=== PATIENT | male | born 1955 ===

== ENCOUNTER 2025-11-02 07:00 | Inpatient (IN) | payer OTHER ==
[~2025-11-02] VITALS: Ht 175.3 cm; Wt 77.1 kg
[2025-11-02 08:36] LABS: BASO % 0.3 % (0.1-1.2); EOS # 0.24 (0.04-0.54); EOS % 3.5 % (0.7-7.0); LYMPH # 1.23 (1.18-3.74); LYMPH % 18.2 % (19.3-53.1); MEAN PLATELET VOLUME 9.40 fl (9.4-12.4); MONO # 0.66 (0.24-0.82); MONO % 9.7 % (4.7-12.5); NEUT # 4.61 (1.56-6.13); NEUT % 68.2 % (34.0-71.1); RED CELL DISTRIBUTION WIDTH 11.8 % (11.6-14.4)
[2025-11-02] MEDS ORDERED: LIPITOR40 MG PO (08:37)
[2025-11-02] MEDS ORDERED: HYDROCHLOROTH12.5 M2 PO (08:37)
[2025-11-02] MEDS ORDERED: NORVASC10 MG PO (08:37)
[2025-11-02 08:38] VITALS: BP 150/80
[2025-11-02] MEDS ORDERED: PROTONIX40 MG PO (08:38)
[2025-11-02 08:57] LABS: COVID-19 AG NEGATIVE (NEGATIVE)
[2025-11-02 09:00] LABS: URINE APPEARANCE Clear; URINE BILIRRUBIN Negative (NEGATIVE); URINE BLOOD Negative; URINE COLOR Yellow; URINE GLUCOSE Negative (NEGATIVE); URINE KETONE Negative (NEGATIVE); URINE LEUKOCYTE Negative; URINE NITRATE Negative; URINE PROTEIN Negative (NEGATIVE); URINE UROBILINOGEN 1.0 E.U./dl
[2025-11-02 09:02] LABS: URINE RBC 5.2 uL (0.0-20.8)
[2025-11-02 09:06] LABS: URINE BACTERIA 1.1 uL (0.0-1933); URINE CAST 0.00 uL (0.0-1.40); URINE EPITHELIAL CELLS 0.9 uL (0.0-38.8); URINE WBC 0.7 uL (0.0-23.2)
[2025-11-02 09:07] LABS: INR 0.99
[2025-11-02 09:21] LABS: BUN CREA RATIO 13.0 (7.0-25.0); CREATININE SERUM 1.05 mg/dL (0.70-1.30); GFR 70.24; GLUCOSE FASTING 96.0 mg/dL (65-100); OSMOLALITY SERUM 283.0 MOSM/KG (275-295)
[2025-11-09] MEDS ORDERED: ENOXAPARIN SODIUM 40 MG/0.4 ML SYRINGE SUBCUTANEO ONE (06:42)
[2025-11-09] MEDS ORDERED: BUPIVACAINE HCL/MPF 0.5% 30ML VIAL ONE (07:10)
[2025-11-09] MEDS ORDERED: HEMOSTATIC MATRIX 1 KIT KIT TOP ONE (07:10)
[2025-11-09] MEDS ORDERED: SUGAMMADEX SODIUM 200 MG/2 ML VIAL IV ONE (08:09)
[2025-11-09] MEDS ORDERED: SURGIFLO APPLICATOR 1 EACH APPL TOP ONE (08:10)
[2025-11-09] MEDS ORDERED: OxyCODONE HCL 5 MG TABLET (ROXICODONE) PO PRN (10:45)
[2025-11-09] MEDS ORDERED: MORPHINE SULFATE 4 MG/ML VIAL IV PRN (10:45)
[2025-11-09] MEDS ORDERED: ONDANSETRON HCL 2 MG/ML VIAL IV PRN (10:45)
[2025-11-09] MEDS ORDERED: RINGERS SOLUTION,LACTATED 1,000 ML IV SCH (10:45)
[2025-11-09 13:50] LABS: BASO % 0.1 % (0.1-1.2); EOS # 0.00 (0.04-0.54); EOS % 0.0 % (0.7-7.0); LYMPH # 0.66 (1.18-3.74); LYMPH % 5.3 % (19.3-53.1); MEAN PLATELET VOLUME 9.50 fl (9.4-12.4); MONO # 0.38 (0.24-0.82); MONO % 3.0 % (4.7-12.5); NEUT # 11.45 (1.56-6.13); NEUT % 91.4 % (34.0-71.1); RED CELL DISTRIBUTION WIDTH 11.5 % (11.6-14.4)
[2025-11-09 14:43] LABS: BUN CREA RATIO 12.0 (7.0-25.0); CREATININE SERUM 1.0 mg/dL (0.70-1.30); GFR 74.31; GLUCOSE FASTING 152.0 mg/dL (65-100); OSMOLALITY SERUM 282.0 MOSM/KG (275-295)
[2025-11-09] MEDS ORDERED: GABAPENTIN 300 MG CAPSULE PO SCH (17:00)
[2025-11-09] MEDS ORDERED: GABAPENTIN 300 MG CAPSULE PO ONE (17:50)
[2025-11-09 20:53] VITALS: BP 149/75; O2SAT 96
[2025-11-09] MEDS ORDERED: CEFAZOLIN SODIUM 1,000 MG VIAL IV SCH (21:00)
[2025-11-09] MEDS ORDERED: DOCUSATE SODIUM 100MG CAP PO SCH (21:00)
[2025-11-09] MEDS ORDERED: FAMOTIDINE/PF 20 MG/2 ML VIAL IV SCH (21:00)
[2025-11-10 00:16] VITALS: BP 130/73; O2SAT 96
[2025-11-10 06:57] LABS: BASO % 0.2 % (0.1-1.2); EOS # 0.00 (0.04-0.54); EOS % 0.0 % (0.7-7.0); LYMPH # 0.75 (1.18-3.74); LYMPH % 6.3 % (19.3-53.1); MEAN PLATELET VOLUME 10.30 fl (9.4-12.4); MONO # 0.92 (0.24-0.82); MONO % 7.7 % (4.7-12.5); NEUT # 10.16 (1.56-6.13); NEUT % 85.4 % (34.0-71.1); RED CELL DISTRIBUTION WIDTH 11.4 % (11.6-14.4)
[2025-11-10 07:22] LABS: BUN CREA RATIO 11.0 (7.0-25.0); CREATININE SERUM 0.93 mg/dL (0.70-1.30); GFR 80.8; GLUCOSE FASTING 93.0 mg/dL (65-100); OSMOLALITY SERUM 280.0 MOSM/KG (275-295)
[2025-11-10 08:00] VITALS: BP 137/82; O2SAT 97
[2025-11-10] MEDS ORDERED: AMLODIPINE BESYLATE 10 MG TABLET PO SCH (09:00)
[2025-11-10] MEDS ORDERED: ENOXAPARIN SODIUM 40 MG/0.4 ML SYRINGE SUBCUTANEO SCH (09:00)
[2025-11-10] MEDS ORDERED: HYDROCHLOROTHIAZIDE 12.5 MG CAPSULE PO SCH (09:00)
== END 2025-11-10 14:58 | disposition home or self-care (01) | DRG 708 ==
LOC: SURH 11-09 07:00 → SURG 11-09 07:00 → O/R 11-09 07:00 → SURG 11-09 16:38
PROVIDERS: ADMIT Urology; ATTEND Urology
PROC: 8E0W4CZ Robotic Assisted Procedure of Trunk Region, Percutaneous Endoscopic Approach (ICD-10-PCS; 2025-11-09)
PROC: 0VT04ZZ Resection of Prostate, Percutaneous Endoscopic Approach (ICD-10-PCS; principal; 2025-11-09 07:00)
DX: C61 Malignant neoplasm of prostate (principal)
CPT/HCPCS: 55866; S2900